=== PATIENT | male | born 1960 | race Caucasian/White ===

== ENCOUNTER → 2016-09-14 | Outpatient (CLI) | payer MEDICARE, OTHER ==
[~2016-09-14] VITALS: Ht 160 cm; Wt 113.0 kg
[~2016-09-14] MED LIST: ASPI-1093 PO; ATOR10TA84 PO; FOLI0.8T22 PO; FOLI1TAB15 PO; HYDR-3965 PO; INSLAN SQ; INSU100V SQ; LORA1TAB3 PO; NIFE30TA98 PO; OMEP20CA10 PO; SEVEC800 PO
[2016-09-14 14:01] VITALS: BP 127/70
== END | disposition home or self-care (01) ==
LOC: SRCNTR 13:56
PROVIDERS: ATTEND Internal Medicine Cardiovascular Disease
DX: J44.9 Chronic obstructive pulmonary disease, unspecified (principal); I12.0 Hypertensive chronic kidney disease with stage 5 chronic kidney disease or end stage renal disease; N18.6 End stage renal disease; Z99.2 Dependence on renal dialysis; G47.30 Sleep apnea, unspecified; E78.5 Hyperlipidemia, unspecified; E66.9 Obesity, unspecified
CPT/HCPCS: G0463

== ENCOUNTER → 2016-12-21 | Outpatient (CLI) | payer MEDICARE, OTHER ==
[~2016-12-21] VITALS: Ht 160 cm; Wt 114.0 kg
[2016-12-21 14:50] VITALS: BP 142/81
== END | disposition home or self-care (01) ==
LOC: SRCNTR 14:33
PROVIDERS: ATTEND Internal Medicine Cardiovascular Disease
DX: I12.0 Hypertensive chronic kidney disease with stage 5 chronic kidney disease or end stage renal disease (principal); N18.6 End stage renal disease; J44.9 Chronic obstructive pulmonary disease, unspecified; G47.30 Sleep apnea, unspecified; E11.9 Type 2 diabetes mellitus without complications; E66.9 Obesity, unspecified; Z99.2 Dependence on renal dialysis
CPT/HCPCS: G0463

== ENCOUNTER → 2017-02-22 | Outpatient (CLI) | payer MEDICARE, OTHER ==
[~2017-02-22] VITALS: Ht 160 cm; Wt 114.0 kg
[2017-02-22 14:09] VITALS: BP 121/58
== END | disposition home or self-care (01) ==
LOC: SRCNTR 14:06
PROVIDERS: ATTEND Internal Medicine Cardiovascular Disease
DX: J44.9 Chronic obstructive pulmonary disease, unspecified (principal); I12.0 Hypertensive chronic kidney disease with stage 5 chronic kidney disease or end stage renal disease; E11.22 Type 2 diabetes mellitus with diabetic chronic kidney disease; N18.6 End stage renal disease; G47.30 Sleep apnea, unspecified; E78.5 Hyperlipidemia, unspecified; E66.9 Obesity, unspecified; Z99.2 Dependence on renal dialysis
CPT/HCPCS: G0463

== ENCOUNTER → 2017-05-24 | Outpatient (CLI) | payer MEDICARE, OTHER ==
[~2017-05-24] VITALS: Ht 160 cm; Wt 113.0 kg
[~2017-05-24] MED LIST changes: -ASPI-1093 PO; +ASPI-1182 PO; +CLON-570 PO; +PREG25 PO
[2017-05-24 14:09] VITALS: BP 116/57
== END | disposition home or self-care (01) ==
LOC: SRCNTR 13:47
PROVIDERS: ATTEND Internal Medicine Cardiovascular Disease
DX: I12.0 Hypertensive chronic kidney disease with stage 5 chronic kidney disease or end stage renal disease (principal); E11.22 Type 2 diabetes mellitus with diabetic chronic kidney disease; N18.6 End stage renal disease; E11.319 Type 2 diabetes mellitus with unspecified diabetic retinopathy without macular edema; J44.9 Chronic obstructive pulmonary disease, unspecified; E78.5 Hyperlipidemia, unspecified; E66.9 Obesity, unspecified; Z79.4 Long term (current) use of insulin; Z99.2 Dependence on renal dialysis; Z79.899 Other long term (current) drug therapy
CPT/HCPCS: G0463

== ENCOUNTER → 2017-05-31 | Outpatient (CLI) | payer MEDICARE, OTHER | END | disposition home or self-care (01) | LOC: RADPV 10:47 | PROVIDERS: ATTEND Internal Medicine Cardiovascular Disease | DX: I51.7 Cardiomegaly (principal) | CPT/HCPCS: 93306 ==

== ENCOUNTER → 2017-08-07 | Outpatient (CLI) | payer MEDICARE, OTHER ==
[~2017-08-07] VITALS: Ht 160 cm; Wt 113.0 kg
[2017-08-07 15:19] VITALS: BP 116/73
== END | disposition home or self-care (01) ==
LOC: SRCNTR 15:14
PROVIDERS: ATTEND Internal Medicine Cardiovascular Disease
DX: I12.0 Hypertensive chronic kidney disease with stage 5 chronic kidney disease or end stage renal disease (principal); S89.92XA Unspecified injury of left lower leg, initial encounter; E11.22 Type 2 diabetes mellitus with diabetic chronic kidney disease; N18.6 End stage renal disease; J44.9 Chronic obstructive pulmonary disease, unspecified; G47.30 Sleep apnea, unspecified; E78.5 Hyperlipidemia, unspecified; E66.9 Obesity, unspecified; X58.XXXA Exposure to other specified factors, initial encounter; Y93.89 Activity, other specified; Y92.89 Other specified places as the place of occurrence of the external cause; Y99.8 Other external cause status; Z79.4 Long term (current) use of insulin; Z79.82 Long term (current) use of aspirin; Z99.2 Dependence on renal dialysis
CPT/HCPCS: G0463

== ENCOUNTER → 2017-10-04 | Outpatient (CLI) | payer MEDICARE, OTHER ==
[~2017-10-04] VITALS: Ht 160 cm; Wt 113.0 kg
[2017-10-04 14:22] VITALS: BP 158/75
== END | disposition home or self-care (01) ==
LOC: SRCNTR 14:02
PROVIDERS: ATTEND Internal Medicine Cardiovascular Disease
DX: I12.0 Hypertensive chronic kidney disease with stage 5 chronic kidney disease or end stage renal disease (principal); E11.22 Type 2 diabetes mellitus with diabetic chronic kidney disease; N18.6 End stage renal disease; J44.9 Chronic obstructive pulmonary disease, unspecified; G47.30 Sleep apnea, unspecified; E78.5 Hyperlipidemia, unspecified; E66.9 Obesity, unspecified; Z79.4 Long term (current) use of insulin; Z79.82 Long term (current) use of aspirin; Z99.2 Dependence on renal dialysis
CPT/HCPCS: G0463

== ENCOUNTER → 2018-01-24 | Outpatient (CLI) | payer MEDICARE, OTHER ==
[~2018-01-24] VITALS: Ht 160 cm; Wt 112.5 kg
[2018-01-24 14:46] VITALS: BP 158/52
== END | disposition home or self-care (01) ==
LOC: SRCNTR 14:29
PROVIDERS: ATTEND Internal Medicine Cardiovascular Disease
DX: E11.22 Type 2 diabetes mellitus with diabetic chronic kidney disease (principal); I12.0 Hypertensive chronic kidney disease with stage 5 chronic kidney disease or end stage renal disease; N18.6 End stage renal disease; J44.9 Chronic obstructive pulmonary disease, unspecified; E78.5 Hyperlipidemia, unspecified; E11.319 Type 2 diabetes mellitus with unspecified diabetic retinopathy without macular edema; E66.9 Obesity, unspecified
CPT/HCPCS: G0463

== ENCOUNTER → 2018-04-11 | Outpatient (CLI) | payer MEDICARE, OTHER ==
[~2018-04-11] VITALS: Ht 160 cm; Wt 113.0 kg
[~2018-04-11] MED LIST changes: +INSU100I24 SQ
[2018-04-11 14:39] VITALS: BP 124/64
== END | disposition home or self-care (01) ==
LOC: SRCNTR 14:23
PROVIDERS: ATTEND Internal Medicine Cardiovascular Disease
DX: I12.0 Hypertensive chronic kidney disease with stage 5 chronic kidney disease or end stage renal disease (principal); E11.22 Type 2 diabetes mellitus with diabetic chronic kidney disease; N18.6 End stage renal disease; E66.9 Obesity, unspecified; E78.5 Hyperlipidemia, unspecified; J44.9 Chronic obstructive pulmonary disease, unspecified; E78.00 Pure hypercholesterolemia, unspecified; K21.9 Gastro-esophageal reflux disease without esophagitis; Z99.2 Dependence on renal dialysis
CPT/HCPCS: G0463

== ENCOUNTER → 2018-08-06 | Outpatient (CLI) | payer MEDICARE, OTHER ==
[~2018-08-06] MED LIST changes: -INSLAN SQ; -INSU100V SQ
== END | disposition home or self-care (01) ==
LOC: RADPV 11:52
PROVIDERS: ATTEND General Practice
DX: M79.672 Pain in left foot (principal); M79.671 Pain in right foot; R53.1 Weakness; R09.89 Other specified symptoms and signs involving the circulatory and respiratory systems
CPT/HCPCS: 93925

== ENCOUNTER → 2018-09-26 | Outpatient (CLI) | payer MEDICARE, OTHER ==
[~2018-09-26] VITALS: Ht 160 cm; Wt 112.0 kg
[~2018-09-26] MED LIST changes: +IOVERSOL 320 MG/ML 100 ML VIAL ONE; +SODIUM CHLORIDE 0.9% 100 ML ONE
[2018-09-26 14:31] VITALS: BP 144/84
== END | disposition home or self-care (01) ==
LOC: SRCNTR 14:20
PROVIDERS: ATTEND Internal Medicine Cardiovascular Disease
DX: I12.9 Hypertensive chronic kidney disease with stage 1 through stage 4 chronic kidney disease, or unspecified chronic kidney disease (principal); E11.22 Type 2 diabetes mellitus with diabetic chronic kidney disease; N18.9 Chronic kidney disease, unspecified; J44.9 Chronic obstructive pulmonary disease, unspecified; E78.5 Hyperlipidemia, unspecified
CPT/HCPCS: G0463; J7050; Q9967

== ENCOUNTER → 2019-06-26 | Outpatient (CLI) | payer MEDICARE, OTHER ==
[~2019-06-26] VITALS: Ht 160 cm; Wt 112.0 kg
[~2019-06-26] MED LIST changes: -CLON-570 PO; +CLON0.1T2 PO; -IOVERSOL 320 MG/ML 100 ML VIAL ONE; +LORA-1000 PO; -LORA1TAB3 PO; -OMEP20CA10 PO; +OMEP20CA12 PO; +SEVE800T17 PO; -SEVEC800 PO; -SODIUM CHLORIDE 0.9% 100 ML ONE
[2019-06-26 15:05] VITALS: BP 156/81
== END | disposition home or self-care (01) ==
LOC: SRCNTR 15:03
PROVIDERS: ATTEND Internal Medicine Cardiovascular Disease
DX: I12.9 Hypertensive chronic kidney disease with stage 1 through stage 4 chronic kidney disease, or unspecified chronic kidney disease (principal); E11.22 Type 2 diabetes mellitus with diabetic chronic kidney disease; N18.9 Chronic kidney disease, unspecified; J44.9 Chronic obstructive pulmonary disease, unspecified; E78.5 Hyperlipidemia, unspecified
CPT/HCPCS: G0463

== ENCOUNTER 2020-05-06 15:15 | Emergency (ER) | payer MEDICARE, OTHER ==
[~2020-05-06] VITALS: Ht 167.6 cm; Wt 109.1 kg
[~2020-05-06 15:15] MED LIST changes: +ASPI-1111 PO; -ASPI-1182 PO; -CLON0.1T2 PO; +CLON0.1T83 PO
[2020-05-06 16:24] LABS: GLUCOSE,POINT OF CARE 254 MG/DL (70-110)
[2020-05-06 16:29] LABS: BASOPHILS % (AUTO) 0.5 % (0.0-2.0); EOSINOPHILS % (AUTO) 0.5 % (1.0-6.0); HEMATOCRIT 33.3 % (41-53); LYMPHOCYTES # (AUTO) 0.7 K/uL (1.0-4.8); LYMPHOCYTES % (AUTO) 7.7 % (22.0-44.0); MEAN CORPUSCULAR HEMOGLOBIN 31.8 pg (26.0-34.0); MEAN CORPUSCULAR HGB CONC 32.9 G/dL (31.0-37.0); MEAN CORPUSCULAR VOLUME 96 fL (80-100); MONOCYTES # (AUTO) 0.4 K/uL (0.1-1.0); MONOCYTES % (AUTO) 4.5 % (2.0-9.0); NEUTROPHILS # (AUTO) 8.2 K/uL (1.8-7.7); PLATELET COUNT (AUTO) 258 K/uL (150-450); RED BLOOD CELL COUNT(AUTO) 3.45 MIL/uL (4.50-5.90); RED CELL DISTRIBUTION WIDTH 13.8 % (11.5-14.5)
[2020-05-06 16:38] LABS: NEUTROPHILS % (AUTO) 86.8 % (40.0-70.0)
[2020-05-06 16:39] LABS: CALCIUM, TOTAL 9.4 mg/dL (8.8-10.5); CREATININE 8.28 mg/dL (0.60-1.30); POTASSIUM 4.8 mmol/L (3.5-5.1)
[2020-05-06 16:44] LABS: ALBUMIN 3.1 g/dL (3.4-5.0); BILIRUBIN,TOTAL 0.5 mg/dL (0.1-1.0)
[2020-05-06 17:46] VITALS: BP 129/71
== END 2020-05-06 17:57 | disposition home or self-care (01) ==
LOC: EMS 15:16
DX: L03.116 Cellulitis of left lower limb (principal); I10 Essential (primary) hypertension; E11.9 Type 2 diabetes mellitus without complications; Z99.2 Dependence on renal dialysis; Z79.899 Other long term (current) drug therapy; Z79.82 Long term (current) use of aspirin; Z79.4 Long term (current) use of insulin
CPT/HCPCS: 83605; 87040; 93971

== ENCOUNTER → 2020-07-01 | Outpatient (CLI) | payer MEDICARE, OTHER ==
[~2020-07-01] VITALS: Ht 167.6 cm; Wt 115.0 kg
[2020-07-01 14:46] VITALS: BP 134/73
== END | disposition home or self-care (01) ==
LOC: SRCNTR 14:08
PROVIDERS: ATTEND Internal Medicine Cardiovascular Disease
DX: I12.0 Hypertensive chronic kidney disease with stage 5 chronic kidney disease or end stage renal disease (principal); L03.116 Cellulitis of left lower limb; E11.22 Type 2 diabetes mellitus with diabetic chronic kidney disease; N18.6 End stage renal disease; Z99.2 Dependence on renal dialysis; J44.9 Chronic obstructive pulmonary disease, unspecified; G47.30 Sleep apnea, unspecified; E78.5 Hyperlipidemia, unspecified; E66.9 Obesity, unspecified
CPT/HCPCS: G0463

== ENCOUNTER → 2020-08-31 | Outpatient (CLI) | payer MEDICARE, OTHER ==
[~2020-08-31] VITALS: Ht 160 cm; Wt 116.0 kg
[~2020-08-31] MED LIST changes: +CLON0.1T2 PO; -CLON0.1T83 PO; -HYDR-3965 PO; +HYDR-4723 PO
[2020-08-31 14:30] VITALS: BP 135/75
== END | disposition home or self-care (01) ==
LOC: SRCNTR 14:16
PROVIDERS: ATTEND Internal Medicine Cardiovascular Disease
DX: E11.22 Type 2 diabetes mellitus with diabetic chronic kidney disease (principal); I12.0 Hypertensive chronic kidney disease with stage 5 chronic kidney disease or end stage renal disease; N18.6 End stage renal disease; J44.9 Chronic obstructive pulmonary disease, unspecified; G47.30 Sleep apnea, unspecified; E78.5 Hyperlipidemia, unspecified; R60.0 Localized edema; E66.9 Obesity, unspecified
CPT/HCPCS: G0463; Z7500

== ENCOUNTER → 2021-01-27 | Outpatient (CLI) | payer MEDICARE, MEDICAID ==
[~2021-01-27] MED LIST changes: -ASPI-1111 PO; +ASPI-1444 PO
== END | disposition home or self-care (01) ==
LOC: RADPV 08:39
PROVIDERS: ATTEND Student in an Organized Health Care Education/Training Program
DX: I70.293 Other atherosclerosis of native arteries of extremities, bilateral legs (principal); R60.0 Localized edema; E11.9 Type 2 diabetes mellitus without complications; E66.9 Obesity, unspecified
CPT/HCPCS: 93970

== ENCOUNTER → 2021-04-05 | Outpatient (CLI) | payer MEDICARE, MEDICAID | END | disposition home or self-care (01) | LOC: SRCNTR 14:45 | PROVIDERS: ATTEND Internal Medicine Cardiovascular Disease | DX: I12.0 Hypertensive chronic kidney disease with stage 5 chronic kidney disease or end stage renal disease (principal); E11.22 Type 2 diabetes mellitus with diabetic chronic kidney disease; N18.6 End stage renal disease; J44.9 Chronic obstructive pulmonary disease, unspecified; G47.00 Insomnia, unspecified; E78.5 Hyperlipidemia, unspecified; E66.9 Obesity, unspecified; R60.0 Localized edema; Z99.2 Dependence on renal dialysis | CPT/HCPCS: Q3014 ==

== ENCOUNTER → 2021-10-11 | Outpatient (CLI) | payer MEDICARE, MEDICAID ==
[2021-10-11 14:30] VITALS: BP 123/74
== END | disposition home or self-care (01) ==
LOC: SRCNTR 14:11
PROVIDERS: ATTEND Internal Medicine Cardiovascular Disease
DX: I12.9 Hypertensive chronic kidney disease with stage 1 through stage 4 chronic kidney disease, or unspecified chronic kidney disease (principal); E11.22 Type 2 diabetes mellitus with diabetic chronic kidney disease; N18.6 End stage renal disease; J44.9 Chronic obstructive pulmonary disease, unspecified; G47.30 Sleep apnea, unspecified; E78.5 Hyperlipidemia, unspecified; E66.9 Obesity, unspecified; G51.0 Bell's palsy
CPT/HCPCS: 93005; G0463